=== PATIENT | male | born 1995 | race Caucasian/White ===

== ENCOUNTER 2019-11-20 03:44 | Emergency (ER) | payer MEDICAID ==
[~2019-11-20] VITALS: Ht 172.7 cm; Wt 108.9 kg
[2019-11-20 03:48] VITALS: BP_SYST 155
[2019-11-20] MEDS ORDERED: ASPIRIN 81 MG TAB.CHEW PO ONE (04:00)
[2019-11-20 04:29] LABS: BASOPHILS # (AUTO) 0.1 K/uL (0.0-0.2); BASOPHILS % (AUTO) 0.8 % (0.0-2.0); EOSINOPHILS # (AUTO) 0.4 K/uL (0.0-0.4); EOSINOPHILS % (AUTO) 3.6 % (0.0-4.0); HEMOGLOBIN 13.9 g/dL (14.0-18.0); LYMPHOCYTES # (AUTO) 3.8 K/uL (1.0-5.5); LYMPHOCYTES % (AUTO) 33.7 % (20.5-51.5); MEAN CORPUSCULAR HEMOGLOBIN 28 pg (27-31); MEAN CORPUSCULAR HGB CONC 32 % (32-36); MEAN CORPUSCULAR VOLUME 88 fL (79.0-98.0); MONOCYTES # (AUTO) 0.8 K/uL (0.0-1.0); MONOCYTES % (AUTO) 7.6 % (1.7-9.3); NEUTROPHILS % (AUTO) 54.3 % (40.0-70.0); PLATELET COUNT (AUTO) 191 K/uL (130-430); RED BLOOD CELL COUNT(AUTO) 4.89 MIL/uL (4.2-6.2); RED CELL DISTRIBUTION WIDTH 13.6 % (9.0-15.0); WHITE BLOOD COUNT (AUTO) 11.1 K/uL (4.8-10.8)
[2019-11-20] MEDS ORDERED: MORPHINE 4 MG/ML INJ. SYRINGE IM ONE (04:30)
[2019-11-20 04:42] LABS: ALBUMIN 3.7 g/dL (3.4-4.8); CALCIUM 9.2 mg/dL (8.4-11.0); CREATININE 1.06 mg/dL (0.55-1.30); POTASSIUM 4.7 mmol/L (3.5-5.1); TOTAL BILIRUBIN 0.3 mg/dL (0.0-1.0)
[2019-11-20 06:09] LABS: BARBITURATE, URINE NEGATIVE (NEG <=200); BENZODIAZEPINE, URINE NEGATIVE (NEG <=150); CANNABINOID, URINE NEGATIVE (NEG <=50); COCAINE, URINE NEGATIVE (NEG <=150); METHAMPHETAMINES SCREEN,URINE NEGATIVE (NEG <=500); OPIATE, URINE POSITIVE (NEG <=100); PHENCYCLIDINE SCREEN,URINE NEGATIVE (NEG <=25); UR TRICYCLIC ANTIDEPRESSANTS NEGATIVE (NEG <=300); URINE AMPHETAMINE NEGATIVE (NEG <=500); URINE METHADONE NEGATIVE (NEG <=200); URINE OXYCODONE SCREEN NEGATIVE (NEG <=100); URINE PROPOXYPHENE SCREEN NEGATIVE (NEG <=300)
[2019-11-20] MEDS ORDERED: IOHEXOL 350 mgI/mL, 150 ML INFUS..BTL IV ONE (06:41)
[2019-11-20 09:06] VITALS: BP_SYST 144
== END 2019-11-20 09:06 | disposition home or self-care (01) ==
LOC: SED 03:44
DX: R07.89 Other chest pain (principal); Z87.891 Personal history of nicotine dependence
CPT/HCPCS: 36415; 71046; 71275; 80053; 80307; 82550; 83880; 84484; 85025; 85379; 93005; 96372; 99285; J2270; Q9967

== ENCOUNTER 2020-03-17 11:07 | Emergency (ER) | payer MEDICAID, SELFPAY ==
[~2020-03-17] VITALS: Ht 170.2 cm; Wt 113.4 kg
[2020-03-17 11:52] VITALS: BP_SYST 134
--- NOTE | 2020-03-17 12:03 | NUR ---
Pt triaged and currently waiting in ambulance for available bed. V/S stable, no distress noted.
[2020-03-17 13:01] LABS: BASOPHILS % (AUTO) 0.4 % (0.0-2.0); CREATININE 1.02 mg/dL (0.55-1.30); EOSINOPHILS % (AUTO) 0.1 % (0.0-4.0); HEMATOCRIT 38.7 % (36-54); HEMOGLOBIN 12.9 g/dL (14.0-18.0); LYMPHOCYTES # (AUTO) 0.8 K/uL (1.0-5.5); LYMPHOCYTES % (AUTO) 10.5 % (20.5-51.5); MEAN CORPUSCULAR HEMOGLOBIN 29 pg (27-31); MEAN CORPUSCULAR HGB CONC 33 % (32-36); MEAN CORPUSCULAR VOLUME 86 fL (79.0-98.0); MONOCYTES # (AUTO) 0.4 K/uL (0.0-1.0); NEUTROPHILS # (AUTO) 6.8 K/uL (1.8-7.7); PLATELET COUNT (AUTO) 132 K/uL (130-430); POTASSIUM 4.2 mmol/L (3.5-5.1); RED BLOOD CELL COUNT(AUTO) 4.52 MIL/uL (4.2-6.2); RED CELL DISTRIBUTION WIDTH 14.7 % (9.0-15.0); WHITE BLOOD COUNT (AUTO) 8.1 K/uL (4.8-10.8)
[2020-03-17 13:07] LABS: ALBUMIN 3.3 g/dL (3.4-4.8); TOTAL BILIRUBIN 0.6 mg/dL (0.0-1.0)
[2020-03-17 13:32] LABS: C-REACTIVE PROTEIN QUANT 14.1 mg/dL (0-0.5)
[2020-03-17 13:37] LABS: PROTHROMBIN TIME 10.3 SECS (9.5-12.5)
[2020-03-17 14:06] LABS: FIBRINOGEN 562 mg/dL (200-400)
[2020-03-17] MEDS ORDERED: ALBUTEROL MDI INHALATION 8 GM INH INH PRN (17:45)
[2020-03-17] MEDS ORDERED: BENZONATATE 100 MG CAPSULE (TESSALON) PO PRN (19:00)
[2020-03-17] MEDS ORDERED: ONDANSETRON HCL 4 MG/2 ML VIAL IVP PRN (19:00)
[2020-03-17] MEDS ORDERED: FUROSEMIDE 20 MG/2 ML VIAL IVP ONE (19:00)
[2020-03-17] MEDS ORDERED: ACETAMINOPHEN 325 MG TABLET PO PRN (19:00)
[2020-03-17] MEDS ORDERED: FLUTICASONE FUROATE 100 MCG BLST.W.DEV INH ONE (19:30)
[2020-03-17] MEDS ORDERED: ENOXAPARIN SODIUM 40 MG/0.4 ML SYRINGE SUBCUT SCH (21:00)
--- NOTE | 2020-03-18 01:00 | NUR ---
Informed by [facility] EMT, pt eloped from the ambulance with family.
[2020-03-18] MEDS ORDERED: DEXAMETHASONE SOD PHOSPHATE 10 MG/ML VIAL IVP SCH (09:00)
[2020-03-18] MEDS ORDERED: FUROSEMIDE 20 MG/2 ML VIAL IVP SCH (09:00)
[2020-03-18] MEDS ORDERED: DECADRON 4 MG TABLET PO SCH (09:00)
== END 2020-03-18 01:00 | disposition left against medical advice (07) ==
LOC: SED 11:07 → SMU 16:16 → UNDOADMIN 16:16 → SED 03-18 01:00 → UNDODISIN 03-18 01:00
DX: U07.1 COVID-19 (principal); J18.9 Pneumonia, unspecified organism
CPT/HCPCS: 36415; 36600; 71045; 80053; 82550-TC; 82728; 82803-TC; 83036; 83605; 83615-TC; 83880; 84484; 85025; 85379; 85384-TC; 85610-TC; 85730-TC; 86140; 86886; 86900; 86901; 93005; 99285; J1650; J1940